=== PATIENT | female | born 1980 | race Two or more races ===

== ENCOUNTER → 2022-07-03 | Outpatient (CLI) | payer OTHER ==
[2022-07-03 06:30] LABS: Basophils # (auto) 0.1 10 ^3/uL (0-0.2); Basophils % (auto) 0.9 % (0.0-2.0); Eosinophils # (auto) 0.1 10 ^3/uL (0-0.8); Eosinophils % (auto) 1.2 % (0.0-7.0); Hematocrit 37.7 % (36.0-46.0); Hemoglobin 12.9 g/dL (12.2-16.2); Lymphocytes # (auto) 3.8 10 ^3/uL (0.4-5.4); Lymphocytes % (auto) 33.9 % (10.0-50.0); Mean Corpuscular Hemoglobin 29.2 pg (28.0-32.0); Mean Corpuscular Hgb Conc. 34.2 g/dL (32.0-36.0); Mean Corpuscular Volume 85.6 fL (80.0-100.0); Monocytes # (auto) 0.7 10 ^3/uL (0-1.3); Monocytes % (auto) 6.1 % (0.0-12.0); Neutrophils # (auto) 6.6 10 ^3/uL (1.6-8.6); Neutrophils % (auto) 57.9 % (37.0-80.0); Nucleated Red Blood Cells % 0.1 %; Red Cell Distribution Width 13.8 % (11.8-14.3); White Blood Cell 11.3 10^3/uL (4.4-10.8)
[2022-07-03 07:13] LABS: Urine Bacteria FEW /hpf (None Seen); Urine Blood Negative /uL (Negative); Urine Hyaline Cast FEW /lpf (0 - 2); Urine Mucus FEW (None Seen); Urine Specific Gravity 1.027 (1.001-1.035); Urine WBC 4 /hpf (0 - 5)
[2022-07-03 07:28] LABS: Albumin 3.4 g/dL (3.4-5.0); BUN/Creatinine Ratio 14.8 (10.0-20.0); Calcium 9.4 mg/dL (8.5-10.1)
[2022-07-03 09:15] LABS: Bilirubin, Total 0.6 mg/dL (0.2-1.0); Total Protein 7.1 g/dL (6.4-8.2)
[2022-07-03 17:30] LABS: Uric Acid 5.5 mg/dL (2.6-6.0)
== END | disposition home or self-care (01) ==
LOC: LAB 06:10
PROVIDERS: ATTEND Internal Medicine
DX: E61.2 Magnesium deficiency (principal); E55.9 Vitamin D deficiency, unspecified; E78.9 Disorder of lipoprotein metabolism, unspecified; R68.89 Other general symptoms and signs; E79.0 Hyperuricemia without signs of inflammatory arthritis and tophaceous disease; R94.6 Abnormal results of thyroid function studies; R73.09 Other abnormal glucose; R82.79 Other abnormal findings on microbiological examination of urine; D51.9 Vitamin B12 deficiency anemia, unspecified; R82.90 Unspecified abnormal findings in urine
CPT/HCPCS: 36415; 80053; 80061; 81001; 82306; 82607; 83036; 84443; 84550; 85025; 87086

== ENCOUNTER → 2022-10-29 | Outpatient (CLI) | payer OTHER ==
[2022-10-29 07:20] LABS: Albumin 3.4 g/dL (3.4-5.0); Bilirubin, Direct 0.1 mg/dL (0-0.2)
[2022-10-29 07:23] LABS: Bilirubin, Total 0.5 mg/dL (0.2-1.0); Total Protein 6.8 g/dL (6.4-8.2)
== END | disposition home or self-care (01) ==
LOC: LAB 06:17
PROVIDERS: ATTEND Podiatrist
DX: B35.1 Tinea unguium (principal)
CPT/HCPCS: 36415; 80076

== ENCOUNTER → 2022-11-14 | Outpatient (CLI) | payer OTHER ==
[2022-11-14 06:59] LABS: Urine Bacteria FEW /hpf (None Seen); Urine Blood Negative /uL (Negative); Urine Clarity HAZY (Clear); Urine Color Yellow (Yellow); Urine Hyaline Cast FEW /lpf (0 - 2); Urine Mucus FEW (None Seen); Urine Protein, UAD 1+ (Negative); Urine Specific Gravity 1.025 (1.001-1.035); Urine Urobilinogen Normal (Negative); Urine WBC 5 /hpf (0 - 5); Urine pH 5.5 (5.0-8.0)
[2022-11-14 07:01] LABS: Basophils # (auto) 0.1 10 ^3/uL (0-0.2); Basophils % (auto) 0.9 % (0.0-2.0); Eosinophils # (auto) 0.1 10 ^3/uL (0-0.8); Eosinophils % (auto) 1.5 % (0.0-7.0); Hematocrit 36.1 % (36.0-46.0); Hemoglobin 12.1 g/dL (12.2-16.2); Lymphocytes # (auto) 3.8 10 ^3/uL (0.4-5.4); Lymphocytes % (auto) 47.8 % (10.0-50.0); Mean Corpuscular Hemoglobin 29.6 pg (28.0-32.0); Mean Corpuscular Hgb Conc. 33.6 g/dL (32.0-36.0); Mean Corpuscular Volume 88.2 fL (80.0-100.0); Monocytes # (auto) 0.5 10 ^3/uL (0-1.3); Monocytes % (auto) 6.3 % (0.0-12.0); Neutrophils # (auto) 3.5 10 ^3/uL (1.6-8.6); Neutrophils % (auto) 43.5 % (37.0-80.0); Red Blood Cells 4.09 10^6/uL (4.0-5.20)
[2022-11-14 07:28] LABS: Alanine Aminotransferase 22 U/L (7-40); Albumin 4.1 g/dL (3.2-4.8); Alkaline Phosphatase 55 U/L (46-116); Anion Gap 6.8 (5-15); Aspartate Aminotransferase 10 U/L (13-40); BUN/Creatinine Ratio 11.3 (10.0-20.0); Bilirubin, Total 0.5 mg/dL (0.2-1.0); Blood Urea Nitrogen 13 mg/dL (9-23); Calcium 9.4 mg/dL (8.5-10.1); Carbon Dioxide 25.2 mmol/L (20-30); Chloride 107 mmol/L (98-107); Cholesterol 140 mg/dL (< 200); Glucose 91 mg/dL (74-106); HDL Cholesterol 54 mg/dL (40-59); LDL Cholesterol 68 mg/dL (< 100); Magnesium 1.9 mg/dL (1.6-2.6); Potassium 4.4 mmol/L (3.5-5.1); Sodium 139 mmol/L (136-145); Total Protein 6.4 g/dL (5.7-8.2); Triglycerides 136 mg/dL (< 150); Uric Acid 6.8 mg/dL (3.1-7.8)
[2022-11-14 12:42] LABS: Folate (Folic Acid) > 24.00 ng/mL (>5.38)
== END | disposition home or self-care (01) ==
LOC: LAB 06:17
PROVIDERS: ATTEND Internal Medicine
DX: E55.9 Vitamin D deficiency, unspecified (principal); E79.0 Hyperuricemia without signs of inflammatory arthritis and tophaceous disease; E78.41 Elevated Lipoprotein(a); R68.89 Other general symptoms and signs; R73.09 Other abnormal glucose; R82.90 Unspecified abnormal findings in urine; D51.9 Vitamin B12 deficiency anemia, unspecified
CPT/HCPCS: 36415; 80053; 80061; 81001; 82306; 82607; 82746; 83036; 83735; 84443; 84550; 85025; 87086

== ENCOUNTER → 2022-11-28 | Outpatient (CLI) | payer OTHER ==
[2022-11-28 08:13] LABS: Alanine Aminotransferase 13 U/L (7-40); Alkaline Phosphatase 46 U/L (46-116); Aspartate Aminotransferase < 8 U/L (13-40); Bilirubin, Direct < 0.1 mg/dL (<0.3); Bilirubin, Total 0.3 mg/dL (0.2-1.0); Total Protein 6.3 g/dL (5.7-8.2)
== END | disposition home or self-care (01) ==
LOC: LAB 06:57
PROVIDERS: ATTEND Podiatrist
DX: B35.1 Tinea unguium (principal)
CPT/HCPCS: 36415; 80076

== ENCOUNTER → 2023-02-13 | Outpatient (CLI) | payer OTHER ==
[2023-02-13 08:00] LABS: Albumin 4.1 g/dL (3.2-4.8); Bilirubin, Direct 0.1 mg/dL (<0.3); Bilirubin, Total 0.4 mg/dL (0.2-1.0); Total Protein 6.2 g/dL (5.7-8.2)
== END | disposition home or self-care (01) ==
LOC: LAB 06:23
PROVIDERS: ATTEND Podiatrist
DX: B35.1 Tinea unguium (principal)
CPT/HCPCS: 36415; 80076

== ENCOUNTER → 2023-08-01 | Outpatient (CLI) | payer OTHER ==
[2023-08-01 07:42] LABS: Alanine Aminotransferase 16 U/L (7-40); Albumin 4.3 g/dL (3.2-4.8); Alkaline Phosphatase 62 U/L (46-116); Anion Gap 6 (5-15); Aspartate Aminotransferase 11 U/L (13-40); BUN/Creatinine Ratio 10.4 (10.0-20.0); Bilirubin, Total 0.5 mg/dL (0.2-1.0); Blood Urea Nitrogen 11 mg/dL (9-23); Calcium 9.7 mg/dL (8.5-10.1); Carbon Dioxide 27 mmol/L (20-30); Chloride 107 mmol/L (98-107); Glucose 85 mg/dL (74-106); Potassium 4.6 mmol/L (3.5-5.1); Sodium 140 mmol/L (136-145); Total Protein 6.5 g/dL (5.7-8.2)
== END | disposition home or self-care (01) ==
LOC: LAB 06:43
PROVIDERS: ATTEND Podiatrist
DX: B35.1 Tinea unguium (principal)
CPT/HCPCS: 36415; 80053

== ENCOUNTER → 2023-08-28 | Outpatient (CLI) | payer OTHER ==
[2023-08-28 07:38] LABS: Alanine Aminotransferase 16 U/L (7-40); Albumin 4.1 g/dL (3.2-4.8); Alkaline Phosphatase 59 U/L (46-116); Anion Gap 5 (5-15); Aspartate Aminotransferase 9 U/L (13-40); BUN/Creatinine Ratio 9.7 (10.0-20.0); Bilirubin, Direct 0.2 mg/dL (<0.3); Bilirubin, Total 0.5 mg/dL (0.2-1.0); Blood Urea Nitrogen 10 mg/dL (9-23); Carbon Dioxide 27 mmol/L (20-30); Chloride 108 mmol/L (98-107); Glucose 96 mg/dL (74-106); Potassium 4.1 mmol/L (3.5-5.1); Sodium 140 mmol/L (136-145); Total Protein 6.3 g/dL (5.7-8.2)
== END | disposition home or self-care (01) ==
LOC: LAB 06:26
PROVIDERS: ATTEND Podiatrist
DX: B35.1 Tinea unguium (principal)
CPT/HCPCS: 36415; 80053; 82248

== ENCOUNTER → 2023-10-09 | Outpatient (CLI) | payer OTHER ==
[2023-10-09 08:22] LABS: Alanine Aminotransferase 19 U/L (7-40); Albumin 4.1 g/dL (3.2-4.8); Alkaline Phosphatase 61 U/L (46-116); Anion Gap 8 (5-15); Aspartate Aminotransferase 14 U/L (13-40); BUN/Creatinine Ratio 11.9 (10.0-20.0); Blood Urea Nitrogen 12 mg/dL (9-23); Calcium 9.6 mg/dL (8.7-10.4); Carbon Dioxide 26 mmol/L (20-30); Chloride 107 mmol/L (98-107); Glucose 90 mg/dL (74-106); Potassium 4.3 mmol/L (3.5-5.1); Sodium 141 mmol/L (136-145)
[2023-10-09 08:23] LABS: Bilirubin, Total 0.5 mg/dL (0.2-1.0); Total Protein 6.2 g/dL (5.7-8.2)
== END | disposition home or self-care (01) ==
LOC: LAB 06:34
PROVIDERS: ATTEND Podiatrist
DX: E11.621 Type 2 diabetes mellitus with foot ulcer (principal)
CPT/HCPCS: 36415; 80053

== ENCOUNTER → 2024-06-03 | Day surgery (SDC) | payer OTHER ==
[2024-05-28 12:40] LABS: Urine Bacteria None Seen /hpf (None Seen)
[2024-05-28 12:53] LABS: Basophils # (auto) 0.1 10 ^3/uL (0-0.2); Basophils % (auto) 0.8 % (0.0-2.0); Eosinophils # (auto) 0 10 ^3/uL (0-0.8); Eosinophils % (auto) 0.6 % (0.0-7.0); Hematocrit 37.5 % (36.0-46.0); Hemoglobin 12.5 g/dL (12.2-16.2); Lymphocytes # (auto) 2.3 10 ^3/uL (0.4-5.4); Mean Corpuscular Hemoglobin 28.9 pg (28.0-32.0); Mean Corpuscular Hgb Conc. 33.3 g/dL (32.0-36.0); Monocytes # (auto) 0.6 10 ^3/uL (0-1.3); Monocytes % (auto) 7.5 % (0.0-12.0); Neutrophils # (auto) 4.6 10 ^3/uL (1.6-8.6); Neutrophils % (auto) 61.1 % (37.0-80.0); Platelet Count (auto) 283 10^3/uL (140-450); Red Blood Cells 4.31 10^6/uL (4.0-5.20); Red Cell Distribution Width 13.5 % (11.8-14.3); White Blood Cell 7.6 10^3/uL (4.4-10.8)
[2024-05-28 12:57] LABS: Urine Blood Negative /uL (Negative); Urine Clarity Clear (Clear); Urine Color Light-Yellow (Yellow); Urine Protein, UAD Negative (Negative); Urine Specific Gravity 1.019 (1.001-1.035); Urine Squamous Epithelial Cell FEW /hpf (<5); Urine Urobilinogen Normal (Negative); Urine WBC 1 /HPF (0-5); Urine pH 5.5 (5.0-9.0)
[2024-05-28 13:07] LABS: INR 0.98 (0.9-1.15); Partial Thromboplastin Time 26.6 SEC (24.5-34.5); Prothrombin Time 10.4 sec (9.3-11.8)
[2024-05-28 13:52] LABS: Alkaline Phosphatase 70 U/L (46-116)
[2024-05-28 13:53] LABS: Alanine Aminotransferase 15 U/L (7-40); Albumin 4.4 g/dL (3.2-4.8); Anion Gap 10 (5-15); Aspartate Aminotransferase 13 U/L (13-40); BUN/Creatinine Ratio 10.3 (10.0-20.0); Bilirubin, Total 0.5 mg/dL (0.2-1.0); Blood Urea Nitrogen 11 mg/dL (9-23); Carbon Dioxide 25 mmol/L (20-31); Chloride 106 mmol/L (98-107); Glucose 86 mg/dL (74-106); Potassium 4.2 mmol/L (3.5-5.1); Sodium 141 mmol/L (136-145); Total Protein 6.6 g/dL (5.7-8.2)
[~2024-06-03] VITALS: Ht 172.7 cm; Wt 149.7 kg
[~2024-06-03] MED LIST: ACET-1881 PO; ALBU2SYP25 IN; ALBUTEROL SULF HFA 90MCG INH 200DOSE IN ONE; ATOR40TA52 PO; BUDE1AER16 IN; BUPIVACAINE HCL 50 ML ONE; CALC200T2 PO; CHOL20007 PO; CYAN25007 PO; CYCL0.05 EACHEYE; DEXL60CA4 PO; DICL75TA3 PO; DUPI1INJ SC; DexAMETHasone SOD PHOS 10MG/1ML VIAL INJ ONE; EREN140I SC; FEXO-42 PO; FLAX1CAP PO; FOLI-119 PO; HYDR200T36 PO; HYDROmorphone HCL 2 MG/ML VL/or syr IV PRN; IPRIH IN; LIDOCAINE 1%-Mpf/Epinephrine 1:200,000 30ml VIAL ONE; LIDOCAINE W/ EPINEPHRINE 2% INJ 20ML VIAL ONE; LURA80TA2 PO; MEPERIDINE HCL (25 MG/ML) 1ML VIAL IV PRN; METF-372 PO; MULT1TAB95 PO; NORG1TAB32 PO; OLOP1SPR; OMEGCAP28 OR; ONDANSETRON HCL 4 MG/2 ML VIAL IV ONE; ONDANSETRON HCL 4 MG/2 ML VIAL ONE; PRAZ1CAP2 PO; PROPOFOL 10 MG/ML 20 ML IV ONE; RIME75TA PO; TRIAMCINOLONE 40MG/ML 1ML VIAL ONE; VITA400T4 PO; ZILE600T5 PO; ceFAZolin 2 GM/D5W100ml 100 ML IV ONE; fentaNYL CITRATE 100 MCG/2 ML VL ONE
[2024-06-03 10:08] VITALS: PULSE 96; RESP 16; TEMP 99.2; O2SAT 97
--- NOTE | 2024-06-03 10:14 | DVHOP2 ---
Operative Report - 2 Report Details Date: 06/03/24 Preop Diagnosis: 1. Right foot tailor's bunionectomy 2. Right foot pain 3. Left foot plantar fasciitis Postop Diagnosis: Right foot tailors bunionectomy Surgeon: Peace Tsang MD Anesthesiologist: See anesthesia Anesthesia: General Implant: 0.062 k wire Consent: The patient was informed of the risks and benefits of the procedure. These include but are not limited to complications of anesthesia, postoperative infection, incomplete relief of symptoms, recurrence of symptoms, damage to blood vessels, nerves and tendons, deep venous thrombosis, pulmonary embolism and possible need for repeat surgery in the future. Complications: None Estimated Blood Loss: Minimal Fluids: See anesthesia Findings: Consistent with diagnosis Indications for Surgery: Worsening bilateral foot pain Name of Procedure Performed 1. Right foot MIS tailors bunionectomy (74159) 2. Right foot metatarsal spur excision (59324) 3. Left foot plantar fascial injection (54804) Procedure Details Procedure Details: PRE-PROCEDURE INFORMATION: In the pre-op holding area, the extremity to be operated on was clearly marked and the patient verified correct laterality of the marking. The patient was transferred to the OR table and placed in a supine position. A timeout was performed in which identification of the correct patient, procedure, location, and materials was done. The right foot and leg were prepped and draped in normal sterile fashion. DESCRIPTION OF PROCEDURE: Attention was directed to the right lateral fifth metatarsal head where a stab incision was made. This incision was deepened through blunt and sharp dissection. Care was taken to avoid damage to neurovascular structures throughout dissection. The incision was carried to the level of the fifth metatarsal head where on intraoperative fluoroscopy as well as preoperative x-rays, it was noted there was no significantly increased lateral deviation angle of the fifth metatarsal, but the lateral aspect of the fifth metatarsal head appeared to be prominent. This indicated that the patient would benefit from an ostectomy of the metatarsal head without osteotomy. Using an MIS bur, an osteotomy was made across the neck of the metatarsal head. Using a 0.62 K wire, the wire was then placed down the shaft of the 5th metatarsal holding the head in the appropriate position. Using the MIS bur, the lateral bone spur was excised. It was noted on intraoperative fluoroscopy, there was significant reduction of deformity We then used a proximally 1 cc of Kenalog 40 to inject into the left plantar heel where the plantar fasciitis was causing issue. All surgical wounds were irrigated copiously with saline and closed in layers with the aforementioned suture material. A dry sterile dressing was placed on the surgical extremity. The patient was placed in a postop shoe POSTOPERATIVE INFORMATION: The patient tolerated the above noted procedure and anesthesia well and was transferred to the PACU with vital signs stable, and vascular status intact with capillary refill intact to all digits. Postoperative instructions reviewed in detail with the patient with written instructions provided. Patient will return to clinic in approximately 10-14 days for first postoperative visit. Patient has the number of the clinic and was instructed to call prior to that time should any problems, questions, or concerns arise. Condition Good Disposition Home PEACE TSANG Laureano Jun 03, 2024 10:14
[2024-06-03] MEDS: ALBUTEROL SULF 2.5 MG/0.5ML(0.5%) NEB SOLN ONE (10:51)
[2024-06-03 11:10] VITALS: BP 143/80; PULSE 78; RESP 13; O2SAT 100
[2024-06-03] MEDS: ALBUTEROL SULF 2.5 MG/0.5ML(0.5%) NEB SOLN NEB ONE (11:46)
== END | disposition home or self-care (01) ==
LOC: SUR 08:14
PROVIDERS: ATTEND Podiatrist
DX: M21.621 Bunionette of right foot (principal); M72.2 Plantar fascial fibromatosis; M21.611 Bunion of right foot; J45.909 Unspecified asthma, uncomplicated; Z98.890 Other specified postprocedural states; Z88.0 Allergy status to penicillin; Z91.048 Other nonmedicinal substance allergy status
CPT/HCPCS: 20550; 28110; 36415; 80053; 81001; 85025; 85610; 85730; 94640; C1713; J1100; J2405; J2704; J3010; J3301; J3490

== ENCOUNTER → 2024-07-21 | Outpatient (CLI) | payer OTHER ==
[~2024-07-21] MED LIST changes: -ALBUTEROL SULF HFA 90MCG INH 200DOSE IN ONE; -BUPIVACAINE HCL 50 ML ONE; -DexAMETHasone SOD PHOS 10MG/1ML VIAL INJ ONE; -HYDROmorphone HCL 2 MG/ML VL/or syr IV PRN; -LIDOCAINE 1%-Mpf/Epinephrine 1:200,000 30ml VIAL ONE; -LIDOCAINE W/ EPINEPHRINE 2% INJ 20ML VIAL ONE; -MEPERIDINE HCL (25 MG/ML) 1ML VIAL IV PRN; -ONDANSETRON HCL 4 MG/2 ML VIAL IV ONE; -ONDANSETRON HCL 4 MG/2 ML VIAL ONE; -PROPOFOL 10 MG/ML 20 ML IV ONE; -TRIAMCINOLONE 40MG/ML 1ML VIAL ONE; -ceFAZolin 2 GM/D5W100ml 100 ML IV ONE; -fentaNYL CITRATE 100 MCG/2 ML VL ONE
[2024-07-21 06:37] LABS: Urine Bacteria None Seen /hpf (None Seen)
[2024-07-21 07:13] LABS: Basophils # (auto) 0 10 ^3/uL (0-0.2); Basophils % (auto) 0.6 % (0.0-2.0); Eosinophils # (auto) 0.1 10 ^3/uL (0-0.8); Eosinophils % (auto) 1.3 % (0.0-7.0); Hematocrit 38.1 % (36.0-46.0); Hemoglobin 13.1 g/dL (12.2-16.2); Lymphocytes # (auto) 3.6 10 ^3/uL (0.4-5.4); Lymphocytes % (auto) 43.4 % (10.0-50.0); Mean Corpuscular Hemoglobin 29.8 pg (28.0-32.0); Mean Corpuscular Hgb Conc. 34.3 g/dL (32.0-36.0); Mean Corpuscular Volume 86.7 fL (80.0-100.0); Monocytes # (auto) 0.5 10 ^3/uL (0-1.3); Monocytes % (auto) 6.6 % (0.0-12.0); Neutrophils % (auto) 48.1 % (37.0-80.0); Platelet Count (auto) 327 10^3/uL (140-450); Red Cell Distribution Width 14.5 % (11.8-14.3); White Blood Cell 8.3 10^3/uL (4.4-10.8)
[2024-07-21 07:18] LABS: Urine Blood Negative /uL (Negative); Urine Clarity Clear (Clear); Urine Color Light-Yellow (Yellow); Urine Protein, UAD Negative (Negative); Urine Specific Gravity 1.022 (1.001-1.035); Urine Squamous Epithelial Cell FEW /hpf (<5); Urine Urobilinogen Normal (Negative); Urine WBC < 1 /HPF (0-5); Urine pH 5.5 (5.0-9.0)
[2024-07-21 08:33] LABS: Alanine Aminotransferase 25 U/L (7-40); Albumin 4.2 g/dL (3.2-4.8); Alkaline Phosphatase 77 U/L (46-116); Anion Gap 13 (5-15); Aspartate Aminotransferase 14 U/L (13-40); BUN/Creatinine Ratio 15.7 (10.0-20.0); Bilirubin, Total 0.4 mg/dL (0.2-1.0); Blood Urea Nitrogen 16 mg/dL (9-23); Calcium 9.7 mg/dL (8.7-10.4); Carbon Dioxide 22 mmol/L (20-31); Cholesterol 169 mg/dL (< 200); Glucose 88 mg/dL (74-106); LDL Cholesterol 74 mg/dL (< 100); Potassium 3.9 mmol/L (3.5-5.1); Sodium 143 mmol/L (136-145); Total Protein 6.5 g/dL (5.7-8.2); Triglycerides 150 mg/dL (< 150)
[2024-07-21 08:34] LABS: Chloride 108 mmol/L (98-107); HDL Cholesterol 69 mg/dL (40-59)
[2024-07-21 09:07] LABS: Uric Acid 5.3 mg/dL (3.1-7.8)
[2024-07-21 09:09] LABS: Folate (Folic Acid) > 48.00 ng/mL (>5.38)
== END | disposition home or self-care (01) ==
LOC: LAB 06:19
PROVIDERS: ATTEND Internal Medicine
DX: E61.2 Magnesium deficiency (principal); E55.9 Vitamin D deficiency, unspecified; D51.9 Vitamin B12 deficiency anemia, unspecified; E78.49 Other hyperlipidemia; E79.0 Hyperuricemia without signs of inflammatory arthritis and tophaceous disease; R94.6 Abnormal results of thyroid function studies; R82.79 Other abnormal findings on microbiological examination of urine; R82.998 Other abnormal findings in urine; R73.09 Other abnormal glucose; R68.89 Other general symptoms and signs; R82.90 Unspecified abnormal findings in urine
CPT/HCPCS: 36415; 80053; 80061; 81001; 82306; 82607; 82746; 83036; 84443; 84550; 85025; 87086

== ENCOUNTER 2024-07-29 06:44 | Day surgery (SDC) | payer OTHER ==
[2024-07-28 14:59] LABS: INR 0.95 (0.9-1.15); Partial Thromboplastin Time 25.9 SEC (24.5-34.5); Prothrombin Time 10.1 sec (9.3-11.8)
[~2024-07-29] VITALS: Ht 172.7 cm; Wt 147.4 kg
[~2024-07-29 06:44] MED LIST changes: +ALBU2SYP25 GT; -ALBU2SYP25 IN; +[UNRECOGNIZED DRUG - CODE] PO
[2024-07-29] MEDS ORDERED: NALOXONE HCL 0.4 MG/ML VIAL ONE (08:29)
[2024-07-29] MEDS ORDERED: FLUMAZENIL 0.1 MG/ML INJ 10ML MDV IV ONE (08:29)
[2024-07-29] MEDS ORDERED: SODIUM CHLORIDE LOCK 10 ML ONE (08:32)
[2024-07-29] MEDS: LIDOCAINE VISCOUS 2% 15ML UD ONE (08:37)
[2024-07-29] MEDS: fentaNYL CITRATE 100 MCG/2 ML VL ONE (08:41)
[2024-07-29] MEDS: MIDAZOLAM HCL 2MG/2ML 2ml VIAL (1mg/ml) ONE (08:41)
[2024-07-29] MEDS: diphenhdrAMINE HCL 50 MG/1 ML VL ONE (08:43)
[2024-07-29] MEDS: MIDAZOLAM HCL 5 MG/ML-1ML VIAL ONE (08:50)
--- NOTE | 2024-07-29 09:14 | DVHOP2 ---
Operative Report DATE OF PROCEDURE: 07/29/24 INDICATIONS FOR THE PROCEDURE: Abdominal pain nausea vomiting unable to keep anything down with heartburn status post gastric bypass PROCEDURE PERFORMED: 1. Esophagogastroduodenoscopy and biopsy with cold biopsy forceps POSTOPERATIVE DIAGNOSIS: Mild esophagitis LA classification B biopsies taken w ith cold biopsy forceps Status post gastric bypass Small gastric remnant with mild gastritis biopsies taken with cold biopsy for ceps INFORMED CONSENT: The risks and benefits and alternatives were explained to the patient and informed consent was obtained. PROCEDURE IN DETAIL: The patient was kept NPO after midnight. In the endoscopy room, she was given IV fentanyl 100 mcg and Versed 6 mg and Benadryl 50 mg titrated slowly to get her sedated. Olympus gastroscope was passed through the oropharynx into the stomach and the duodenum, and the findings were as follows. Esophagus: Mild Esophagitis of the distal esophagus LA classification B biopsies taken with cold biopsy forceps No Esophageal ulcer No Esophageal stricture No varices Stomach: Status post gastric bypass with small gastric remnant with mild inflammation in the gastric side of the anastomosis no ulcers no strictures seen Biopsies taken with the cold biopsy forceps to rule out H pylori and other pathology The small bowel loops of the jejunum which were visualized normal with no ulcers no strictures no stasis Endoscopic impression Status post gastric bypass surgery Mild esophagitis LA classification B Mild gastritis of the gastric remnant No ulcers no strictures no mass lesions seen Suggestions Await the biopsy results Aggressive treatment with PPIs Symptoms persist may need further evaluations including GI x-rays CT scan etc. Thank you Dr. Ghosh for asking me to take part in the care of this pleasant patient Regards Dr. Dang ENDOSCOPIC IMPRESSION: SUGGESTIONS: With warm regards, JACQUE DANG MD July 29, 2024 09:14
[2024-07-29 09:15] VITALS: PULSE 87; RESP 19; TEMP 99.5; O2SAT 99
[2024-07-29 09:45] VITALS: BP 132/49; PULSE 89; RESP 17; O2SAT 95
== END 2024-07-29 10:10 | disposition home or self-care (01) ==
LOC: GI 06:44
PROVIDERS: ATTEND Internal Medicine Gastroenterology
DX: R10.9 Unspecified abdominal pain (principal); K29.50 Unspecified chronic gastritis without bleeding; R11.2 Nausea with vomiting, unspecified; K21.00 Gastro-esophageal reflux disease with esophagitis, without bleeding; R12 Heartburn; E78.00 Pure hypercholesterolemia, unspecified; J45.909 Unspecified asthma, uncomplicated; G43.909 Migraine, unspecified, not intractable, without status migrainosus; G47.30 Sleep apnea, unspecified; M79.7 Fibromyalgia; F43.10 Post-traumatic stress disorder, unspecified; F32.A Depression, unspecified; Z98.84 Bariatric surgery status; Z88.0 Allergy status to penicillin; Z88.5 Allergy status to narcotic agent; Z88.8 Allergy status to other drugs, medicaments and biological substances
CPT/HCPCS: 36415; 43239; 84702; 85610; 85730; 88305; 88312; 88342; J1200; J2250; J3010; J7030; 99152; 99153

== ENCOUNTER 2024-10-21 09:38 | Day surgery (SDC) | payer OTHER ==
[2024-10-16 12:14] LABS: Hematocrit 36.7 % (36.0-46.0); Hemoglobin 12.8 g/dL (12.2-16.2); Mean Corpuscular Hemoglobin 30.7 pg (28.0-32.0); Mean Corpuscular Volume 88.2 fL (80.0-100.0); Nucleated Red Blood Cells % 0.1 %
[2024-10-16 12:17] LABS: Alanine Aminotransferase 21 U/L (7-40); Albumin 4.4 g/dL (3.2-4.8); Alkaline Phosphatase 80 U/L (46-116); Anion Gap 10 (5-15); BUN/Creatinine Ratio 13.9 (10.0-20.0); Bilirubin, Total 0.6 mg/dL (0.2-1.0); Blood Urea Nitrogen 14 mg/dL (9-23); Calcium 9.3 mg/dL (8.7-10.4); Carbon Dioxide 20 mmol/L (20-31); Chloride 109 mmol/L (98-107); Glucose 87 mg/dL (74-106); Potassium 3.8 mmol/L (3.5-5.1); Sodium 139 mmol/L (136-145); Total Protein 6.4 g/dL (5.7-8.2)
[2024-10-16 12:22] LABS: INR 1.0 (0.9-1.15); Partial Thromboplastin Time 26.9 SEC (24.5-34.5); Prothrombin Time 10.6 sec (9.3-11.8)
[2024-10-16 12:36] LABS: Urine Protein, UAD TRACE (Negative)
[~2024-10-21] VITALS: Ht 172.7 cm; Wt 147.6 kg
[~2024-10-21 09:38] MED LIST changes: -EREN140I SC; +FREM225I2 SC
[2024-10-21] MEDS: ceFAZolin 2 GM/D5W50ml 50 ML IV ONE (10:13)
[2024-10-21] MEDS ORDERED: PROPOFOL 10 MG/ML 20 ML IV ONE ×2 (14:22→14:54)
[2024-10-21] MEDS ORDERED: LIDOCAINE 1% INJ PF 5ML AMP ONE (14:22)
[2024-10-21] MEDS ORDERED: GLYCOPYRROLATE 0.2 MG/ML 1ML VIAL ONE (14:22)
[2024-10-21] MEDS ORDERED: ONDANSETRON HCL 4 MG/2 ML VIAL ONE (14:22)
[2024-10-21] MEDS ORDERED: KETOROLAC TROMETH 30 MG/ML 1ML VIAL ONE (14:22)
[2024-10-21] MEDS ORDERED: KETAMINE 50mg/ML 10ml Vial 10 ML ONE (14:23)
[2024-10-21] MEDS: LIDOCAINE 1% HCL (LOCAL ANESTH.) INJ 20ML MDV ONE (14:40)
[2024-10-21] MEDS: ACETAMINOPHEN IV 1000 MG/100ML (10MG/ML) IV ONE (14:45)
[2024-10-21] MEDS: GABAPENTIN 300 MG CAP PO ONE (14:45)
[2024-10-21] MEDS: CELECOXIB 100 MG CAP PO ONE (14:45)
[2024-10-21] MEDS: CELECOXIB 100 MG CAP ONE (14:51)
[2024-10-21] MEDS: GABAPENTIN 300 MG CAP ONE (14:52)
[2024-10-21] MEDS: ACETAMINOPHEN IV 100 ML IV ONE (14:52)
[2024-10-21 15:16] VITALS: PULSE 93; RESP 28; TEMP 98; O2SAT 100
--- NOTE | 2024-10-21 15:19 | DVHOP2 ---
Operative Report - 2 Report Details Date: 10/21/24 Preop Diagnosis: 1. Left foot tailors bunionectomy 2. Left foot pain Postop Diagnosis: Same as preop Surgeon: Peace Tsang MD Anesthesiologist: See anesthesia Anesthesia: Mac Implant: 0.062 K-wire Consent: The patient was informed of the risks and benefits of the procedure. These include but are not limited to complications of anesthesia, postoperative infection, incomplete relief of symptoms, recurrence of symptoms, damage to blood vessels, nerves and tendons, deep venous thrombosis, pulmonary embolism and possible need for repeat surgery in the future. Complications: None Estimated Blood Loss: Minimal Fluids: See anesthesia Findings: Consistent with diagnosis Indications for Surgery: Worsening left foot pain Name of Procedure Performed 1. Left foot tailors bunionectomy (39435) Procedure Details Procedure Details: PRE-PROCEDURE INFORMATION: In the pre-op holding area, the extremity to be operated on was clearly marked and the patient verified correct laterality of the marking. The patient was transferred to the OR table and placed in a supine position. A timeout was performed in which identification of the correct patient, procedure, location, and materials was done. The left foot and leg were prepped and draped in normal sterile fashion. DESCRIPTION OF PROCEDURE: Attention was directed to the left lateral fifth metatarsal head where a stab incision was made. This incision was deepened through blunt and sharp dissection. Care was taken to avoid damage to neurovas cular structures throughout dissection. The incision was carried to the level of the fifth metatarsal head where on intraoperative fluoroscopy as well as preoperative x-rays, it was noted there was no significantly increased lateral deviation angle of the fifth metatarsal, but the lateral aspect of the fifth metatarsal head appeared to be prominent. This indicated that the patient would benefit from an ostectomy of the metatarsal head without osteotomy. Using an MIS bur, an osteotomy was made across the neck of the metatarsal head. Using a 0.62 K wire, the wire was then placed down the shaft of the 5th metatarsal holding the head in the appropriate position. It was noted on intraoperative fluoroscopy, there was significant reduction of deformity All surgical wounds were irrigated copiously with saline and closed in layers with the aforementioned suture material. A dry sterile dressing was placed on the surgical extremity. The patient was placed in a postop shoe POSTOPERATIVE INFORMATION: The patient tolerated the above noted procedure and anesthesia well and was transferred to the PACU with vital signs stable, and vascular status intact with capillary refill intact to all digits. Postoperative instructions reviewed in detail with the patient with written instructions provided. Patient will return to clinic in approximately 10-14 days for first postoperative visit. Patient has the number of the clinic and was instructed to call prior to that time should any problems, questions, or concerns arise. Condition Good Disposition Home Visit Coding Podiatry Date of Service if different f: Oct 21, 2024 Billing Provider: PEACE TSANG DPM Podiatry Common Visit Codes: PROCEDURE ONLY PEACE TSANG DPM Oct 21, 2024 15:19
[2024-10-21] MEDS ORDERED: NALOXONE HCL 0.4 MG/ML VIAL IV PRN (15:30)
[2024-10-21] MEDS ORDERED: FLUMAZENIL 0.1 MG/ML INJ 10ML MDV IV PRN (15:30)
[2024-10-21] MEDS ORDERED: HYDROmorphone HCL 2 MG/ML VL/or syr IV PRN (15:30)
[2024-10-21] MEDS ORDERED: ONDANSETRON HCL 4 MG/2 ML VIAL IV PRN (15:30)
[2024-10-21] MEDS ORDERED: fentaNYL CITRATE 100 MCG/2 ML VL IV PRN (15:30)
[2024-10-21] MEDS ORDERED: hydrALAZINE HCL 20 MG/ML VL IV PRN (15:30)
[2024-10-21 16:25] VITALS: BP 126/71; PULSE 71; RESP 21; O2SAT 100
== END 2024-10-21 16:25 | disposition home or self-care (01) ==
LOC: SUR 09:38
PROVIDERS: ATTEND Podiatrist
DX: M21.622 Bunionette of left foot (principal); F32.A Depression, unspecified; E78.00 Pure hypercholesterolemia, unspecified; G43.909 Migraine, unspecified, not intractable, without status migrainosus; M19.90 Unspecified osteoarthritis, unspecified site; M79.7 Fibromyalgia; G47.30 Sleep apnea, unspecified; K21.9 Gastro-esophageal reflux disease without esophagitis; E66.9 Obesity, unspecified; J45.909 Unspecified asthma, uncomplicated; Z98.890 Other specified postprocedural states; Z88.8 Allergy status to other drugs, medicaments and biological substances; Z88.0 Allergy status to penicillin; Z88.5 Allergy status to narcotic agent; Z79.899 Other long term (current) drug therapy; Z79.84 Long term (current) use of oral hypoglycemic drugs
CPT/HCPCS: 28308; 36415; 80053; 81001; 84702; 85025; 85610; 85730; J0690; J1100; J1885; J2003; J2405; J2704; J0131

== ENCOUNTER 2024-11-10 10:52 | Outpatient (CLI) | payer OTHER ==
[2024-11-10 11:46] LABS: Alanine Aminotransferase 27.0 U/L (7-40); Alkaline Phosphatase 81.0 U/L (46-116); Total Protein 6.7 g/dL (5.7-8.2)
[2024-11-10 11:47] LABS: Albumin 4.6 g/dL (3.2-4.8); Bilirubin, Direct 0.1 mg/dL (<0.3); Bilirubin, Total 0.4 mg/dL (0.2-1.0)
== END 2024-11-10 17:00 | disposition home or self-care (01) ==
LOC: LAB 10:52
PROVIDERS: ATTEND Podiatrist
DX: B35.1 Tinea unguium (principal)
CPT/HCPCS: 36415; 80076

== ENCOUNTER 2025-01-28 12:40 | Outpatient (CLI) | payer OTHER ==
[2025-01-28] MEDS ORDERED: LIDOCAINE 2%HCL (LOCAL ANESTH.) INJ 10ml MDV ONE (12:55)
[2025-01-28] MEDS ORDERED: BUPIVACAINE HCL 0.25% P/F 10 ML VIAL ONE (12:55)
[2025-01-28] MEDS ORDERED: methylPREDNISolone ACETATE 80 MG/ML VL ONE (12:55)
[2025-01-28] MEDS ORDERED: IOHEXOL 300 MG/ML 100ML BOTTLE IJ ONE (12:55)
--- NOTE | 2025-01-28 14:07 | DVH ---
XY FLUOROGUIDANCE FOR NEEDLE PLAC, XY R HIP 1V XRAY HISTORY: RIGHT HIP BURSITIS COMPARISON: None PROCEDURE: The risks and benefits of the procedure including infection, hemorrhage and technical failure were discussed with the patient, who agreed to proceed. The patient was positioned supine on the fluoroscopy table. Time out was performed. The right hip was localized using fluoroscopy, and the location on the skin for needle insertion was marked. The region was prepped and draped using routine sterile technique. Approximately 1 cc of lidocaine was injected for local anesthesia. A 22 gauge spinal needle was inserted, and intra-articular location was confirmed by injection of less than 1 cc of iodinated contrast. 1 cc of methylprednisolone (80 mg/cc) and 4 cc of Bupivacaine (0.25%) and 5 cc of 2% Lidocaine was then injected without complication. Fluoroscopy time was 0.3 minutes. The patient was informed of the temporary precautions to take following the procedure as well as of the potential signs and symptoms which may indicate the need to contact physician, and expressed understanding of this discussion. IMPRESSION: Successful steroid and anesthetic injection of the right hip.
== END 2025-01-28 17:00 | disposition home or self-care (01) ==
LOC: XYW 12:40
PROVIDERS: ATTEND Physician Assistant Medical
DX: M70.71 Other bursitis of hip, right hip (principal); Z79.01 Long term (current) use of anticoagulants; Z79.84 Long term (current) use of oral hypoglycemic drugs; Z79.899 Other long term (current) drug therapy; Z88.0 Allergy status to penicillin; Z88.5 Allergy status to narcotic agent; Z88.8 Allergy status to other drugs, medicaments and biological substances
CPT/HCPCS: 20610; 77002; J1010; J2003; J3490; Q9967; 73501

== ENCOUNTER 2025-02-17 08:58 | Day surgery (SDC) | payer OTHER ==
[2025-02-15 12:10] LABS: Hematocrit 39.1 % (36.0-46.0); Hemoglobin 13.1 g/dL (12.2-16.2); Mean Corpuscular Hemoglobin 29.0 pg (28.0-32.0); Mean Corpuscular Volume 86.5 fL (80.0-100.0); Nucleated Red Blood Cells % 0.1 %
[2025-02-15 12:24] LABS: INR 0.94 (0.9-1.15); Partial Thromboplastin Time 26.8 SEC (24.5-34.5); Prothrombin Time 10.0 sec (9.3-11.8)
[2025-02-15 12:27] LABS: Alanine Aminotransferase 23 U/L (7-40); Albumin 4.4 g/dL (3.2-4.8); Alkaline Phosphatase 79 U/L (46-116); Anion Gap 12 (5-15); BUN/Creatinine Ratio 15.7 (10.0-20.0); Bilirubin, Total 0.5 mg/dL (0.2-1.0); Blood Urea Nitrogen 16 mg/dL (9-23); Calcium 9.2 mg/dL (8.7-10.4); Carbon Dioxide 21 mmol/L (20-31); Chloride 106 mmol/L (98-107); Glucose 83 mg/dL (74-106); Potassium 3.9 mmol/L (3.5-5.1); Sodium 139 mmol/L (136-145); Total Protein 7.1 g/dL (5.7-8.2)
[2025-02-15 12:58] LABS: Urine Protein, UAD TRACE (Negative)
[~2025-02-17] VITALS: Ht 172.7 cm; Wt 154.2 kg
[~2025-02-17 08:58] MED LIST changes: +ALBU1AER6 IN; -ALBU2SYP25 GT; -CYCL0.05 EACHEYE; +WHEAPOW OR; -ZILE600T5 PO
[2025-02-17] MEDS ORDERED: LIDOCAINE 1% HCL (LOCAL ANESTH.) INJ 20ML MDV ONE (10:59)
--- NOTE | 2025-02-17 11:04 | DVHOP2 ---
Operative Report - 2 Report Details Date: 02/17/25 Preop Diagnosis: 1. Left foot bunion 2. Left foot neuroma 3. Left foot pain Postop Diagnosis: Same as preop Surgeon: Peace Tsang MD Anesthesiologist: See anesthesia Anesthesia: Mac Implant: 0.062 k wire Consent: The patient was informed of the risks and benefits of the procedure. These include but are not limited to complications of anesthesia, postoperative infection, incomplete relief of symptoms, recurrence of symptoms, damage to blood vessels, nerves and tendons, deep venous thrombosis, pulmonary embolism and possible need for repeat surgery in the future. Complications: None Estimated Blood Loss: Minimal Fluids: See anesthesia Findings: Consistent with the diagnosis Indications for Surgery: Worsening left foot pain Name of Procedure Performed 1. Left foot MIS bunionectomy (01270) 2. Left foot neuroma injection (93995) Procedure Details Procedure Details: PRE-PROCEDURE INFORMATION: In the pre-op holding area, the extremity to be operated on was clearly marked and the patient verified correct laterality of the marking. The patient was transferred to the OR table and placed in a supine position. A timeout was performed in which identification of the correct patient, procedure, location, and materials was done. The left foot and leg were prepped and draped in normal sterile fashion. DESCRIPTION OF PROCEDURE: Attention was directed to the left 1st metatarsophalangeal joint where a stab incision was made at the neck of the 1st metatarsal. Care was taken to avoid damage the neurovascular and tendinous structures. An MIS per, an osteotomy was then made at the neck of the 1st metatarsal. The metatarsal head was then shifted into position aligning the sesamoid bones over the fragment. Using a 6 2 K-wire, the wire was then driven down the shaft of the 1st metatarsal to hold the head in place until the osteotomy has healed. An injection of Kenalog 40 was injected into the left third interspace. All surgical wounds were irrigated copiously with saline and closed in layers with the aforementioned suture material. A dry sterile dressing was placed on the surgical extremity. The patient was placed in a postop shoe POSTOPERATIVE INFORMATION: The patient tolerated the above noted procedure and anesthesia well and was transferred to the PACU with vital signs stable, and vascular status intact with capillary refill intact to all digits. Postoperative instructions reviewed in detail with the patient with written instructions provided. Patient will return to clinic in approximately 10-14 days for first postoperative visit. Patient has the number of the clinic and was instructed to call prior to that time should any problems, questions, or concerns arise. Condition Good Disposition Home Visit Coding Podiatry Date of Service if different f: Feb 17, 2025 Billing Provider: PEACE TSANG DPM Podiatry Common Visit Codes: PROCEDURE ONLY PEACE TSANG DPM Feb 17, 2025 11:03
[2025-02-17] MEDS ORDERED: fentaNYL CITRATE 100 MCG/2 ML VL ONE (11:10)
[2025-02-17] MEDS ORDERED: PROPOFOL 10 MG/ML 20 ML IV ONE (11:10)
[2025-02-17] MEDS: ceFAZolin 2 GM/D5W50ml 50 ML IV ONE (11:15)
[2025-02-17] MEDS ORDERED: ONDANSETRON HCL 4 MG/2 ML VIAL ONE (11:22)
[2025-02-17] MEDS ORDERED: MEPERIDINE HCL (25 MG/ML) 1ML VIAL ONE (11:24)
[2025-02-17 11:37] VITALS: PULSE 100; RESP 16; TEMP 97.7; O2SAT 99
[2025-02-17] MEDS ORDERED: FLUMAZENIL 0.1 MG/ML INJ 10ML MDV IV PRN (11:45)
[2025-02-17] MEDS ORDERED: fentaNYL CITRATE 100 MCG/2 ML VL IV PRN (11:45)
[2025-02-17] MEDS ORDERED: ONDANSETRON HCL 4 MG/2 ML VIAL IV PRN (11:45)
[2025-02-17] MEDS ORDERED: NALOXONE HCL 0.4 MG/ML VIAL IV PRN (11:45)
[2025-02-17] MEDS ORDERED: hydrALAZINE HCL 20 MG/ML VL IV PRN (11:45)
[2025-02-17] MEDS: HYDROmorphone HCL 2 MG/ML VL/or syr IV PRN (11:59)
[2025-02-17 12:52] VITALS: BP 140/84; PULSE 83; RESP 17; O2SAT 100
== END 2025-02-17 13:13 | disposition home or self-care (01) ==
LOC: SUR 08:58
PROVIDERS: ATTEND Podiatrist
DX: M21.612 Bunion of left foot (principal); G57.62 Lesion of plantar nerve, left lower limb; M21.621 Bunionette of right foot; J45.909 Unspecified asthma, uncomplicated; E78.00 Pure hypercholesterolemia, unspecified; E28.2 Polycystic ovarian syndrome; K21.9 Gastro-esophageal reflux disease without esophagitis; G47.30 Sleep apnea, unspecified; G43.909 Migraine, unspecified, not intractable, without status migrainosus; F32.A Depression, unspecified; F43.10 Post-traumatic stress disorder, unspecified; Z79.899 Other long term (current) drug therapy; Z98.890 Other specified postprocedural states; Z88.0 Allergy status to penicillin; Z88.8 Allergy status to other drugs, medicaments and biological substances
CPT/HCPCS: 28306; 36415; 64455; 80053; 81001; 81025; 85025; 85610; 85730; C1713; J0690; J1100; J1171; J2003; J2175; J2405; J2704; J3010